=== PATIENT | female | born 1955 | race Caucasian/White ===

== ENCOUNTER 2017-03-03 04:04 | Emergency (ER) | payer BC ==
[~2017-03-03] VITALS: Ht 154.9 cm; Wt 69.0 kg
[2017-03-03 04:07] VITALS: Ht 154.9 cm; Wt 69.0 kg
[2017-03-03] MEDS ORDERED: IBUPROFEN 600 MG TAB PO ONE (07:00)
--- NOTE | 2017-03-03 07:25 | ERD ---
ER Documentation Chief Complaint Date/Time DATE: 03/03/17 TIME: 07:16 Chief Complaint L hand pain nonradiating started last night at 6 pm(denies injury) HPI This is a 61-year-old female presenting to emergency department with left hand pain 2 days. Patient states around 6 PM yesterday she was gardening and while she was putting on her gardening gloves she felt a sharp pinch to her since then she noticed left hand. Pain, redness and swelling to left hand. Patient denies noticing any insect. No fevers or chills. Patient states she has had pain and swelling since last night and has been unable to sleep. Denies numbness or tingling. No loss of sensation. Patient denies itching. No spreading rash. ROS All systems reviewed and are negative except as per history of present illness. Medications Home Meds Active Scripts Cephalexin* (Keflex*) 500 Mg Capsule, 500 MG PO QID for 5 Days, CAP Prov:NADINE ERAZO NP 03/03/17 Allergies Allergies: Coded Allergies: No Known Allergy (Unverified , 03/03/17) PMhx/Soc Medical and Surgical Hx: pt denies Medical Hx, pt denies Surgical Hx Hx Alcohol Use: No Hx Substance Use: No Hx Tobacco Use: No Smoking Status: Never smoker Physical Exam Vitals Vital Signs Date Time Temp Pulse Resp B/P Pulse Ox O2 Delivery O2 Flow Rate FiO2 03/03/17 04:07 98.1 80 20 141/67 97 Physical Exam Const: No acute distress, alert Head: Atraumatic Eyes: Normal Conjunctiva ENT: Normal External Ears, Nose and Mouth. Neck: Full range of motion..~ No meningismus. Resp: Clear to auscultation bilaterally Cardio: Regular rate and rhythm, no murmurs Abd: Soft, non tender, non distended. Normal bowel sounds Skin: mild erythematous swelling to inter-webbing of 1st and 2nd digit to left hand that spreads proximally. capillary refill less than 3 seconds. Patient is able to make a fist and extend all digits without discomfort. Sensation fully intact. Back: No midline or flank tenderness Ext: No cyanosis, or edema Neur: Awake and alert Psych: Normal Mood and Affect Results 24 hrs Current Medications Medications (Trade) Dose Ordered Sig/Garcia Route PRN Reason Start Time Stop Time Status Last Admin Dose Admin Ibuprofen (Motrin) 600 mg ONCE ONCE PO 03/03/17 07:00 03/03/17 07:01 DC 03/03/17 06:54 Procedures/MDM MDM: This is a 61-year-old female presenting to emergency department with left hand pain after feeling sharp sting to left hand yesterday after removing after putting on a gardening glove. Patient has erythematous swelling to inner webbing of left first and second digit. Patient states she tried ice and ibuprofen 200 mg at home. Patient given another ice pack and given ibuprofen 600 mg while in the ED. Low suspicion for cellulitis however based on patient' s symptoms, patient will be discharged with prescription for antibiotic as needed for worsening pain and swelling and possible development of cellulitis. Diagnosis cellulitis. Patient is appropriate for outpatient management will be given prescription for ibuprofen and Keflex. Instructed patient to follow-up to ER or PCP in the next 2 days for reassessment and additional management. Resources provided. Return to ED for any high fever, chest pain, difficulty breathing, shortness breath, wheezing, vomiting, diarrhea, abdominal pain or any new or worsening symptoms. Patient verbalizes understanding. All questions answered at discharge. Patient discharged in compliance with the [facility] treat and release policy. Disclaimer: Inadvertent spelling and grammatical errors are likely due to EHR/ dictation software use and do not reflect on the overall quality of patient care. Also, please note that the electronic time recorded on this note does not necessarily reflect the actual time of the patient encounter. Departure Diagnosis: Primary Impression: Insect bite Encounter type: initial encounter Qualified Code: W57.XXXA - Insect bite, initial encounter Condition: Stable NADINE ERAZO NP Mar 03, 2017 07:25
[2017-03-03] MEDS ORDERED: CEPH-443 PO (07:43)
== END 2017-03-03 07:48 | disposition home or self-care (01) ==
LOC: FTE 04:04
DX: S60.562A Insect bite (nonvenomous) of left hand, initial encounter (principal); W57.XXXA Bitten or stung by nonvenomous insect and other nonvenomous arthropods, initial encounter; Y92.9 Unspecified place or not applicable
CPT/HCPCS: 99283